=== PATIENT | male | born 1985 | race Caucasian/White ===

== ENCOUNTER 2018-10-01 19:08 | Emergency (ER) | payer OTHER ==
[~2018-10-01] VITALS: Ht 180.3 cm; Wt 74.8 kg
[~2018-10-01 19:08] MED LIST: DOXYCYCLINE 10100 MG PO; FLAGYL500 MG PO; IBUPROFEN 800800 M1 PO
[2018-10-01] MEDS ORDERED: STOMACH MED (19:22)
[2018-10-01] MEDS ORDERED: DOXYCYCLINE 10100 MG PO (20:07)
[2018-10-01] MEDS ORDERED: NABUMETONE 750750 M1 PO (20:07)
[2018-10-01] MEDS ORDERED: NORCO 5-325 TA1 EACH PO (20:07)
[2018-10-01 20:26] VITALS: BP 125/89
== END 2018-10-01 20:27 | disposition home or self-care (01) ==
LOC: M.ERS 19:08
DX: S61.011A Laceration without foreign body of right thumb without damage to nail, initial encounter (principal); F17.210 Nicotine dependence, cigarettes, uncomplicated; Z88.2 Allergy status to sulfonamides; Z88.8 Allergy status to other drugs, medicaments and biological substances; W26.9XXA Contact with unspecified sharp object(s), initial encounter; Y93.89 Activity, other specified; Y92.89 Other specified places as the place of occurrence of the external cause; Y99.8 Other external cause status

== ENCOUNTER 2020-10-29 20:53 | Emergency (ER) | payer MEDICAID ==
[~2020-10-29] VITALS: Ht 180.3 cm; Wt 74.8 kg
[~2020-10-29 20:53] MED LIST changes: +NABUMETONE 750750 M1 PO; +NORCO 5-325 TA1 EACH PO; +STOMACH MED
[2020-10-29] MEDS ORDERED: ABILIFY15 MG PO (21:20)
[2020-10-29] MEDS ORDERED: PRAZOSIN 1 MG CA1 M1 PO (21:21)
[2020-10-29] MEDS ORDERED: ZOLOFT25 MG PO (21:23)
[2020-10-29] MEDS ORDERED: DOXYCYCLINE 10100 MG PO (21:38)
[2020-10-29 21:50] VITALS: BP 145/105
== END 2020-10-29 21:50 | disposition home or self-care (01) ==
LOC: M.ERS 20:53
DX: M25.572 Pain in left ankle and joints of left foot (principal); F17.210 Nicotine dependence, cigarettes, uncomplicated; Z88.1 Allergy status to other antibiotic agents; Z88.2 Allergy status to sulfonamides